=== PATIENT | male | born 1950 | race Caucasian/White ===

== ENCOUNTER 2021-01-08 07:56 | Day surgery (SDC) | payer MEDICARE, SELFPAY ==
[2021-01-02 16:40] VITALS: BMI 38.7
--- NOTE | 2021-01-04 07:51 | MHC.SHP ---
Pre-Procedural Eval Section A The patient is an INPATIENT: No The History & Physical has been completed within 30 days and I have reviewed it.: Yes Section B Chief Complaint: cataract Allergies: Allergies Allergy/AdvReac Type Severity Reaction Status Date / Time Sulfa (Sulfonamide Allergy Severe Unknown Verified 01/02/21 16:34 Antibiotics) Plan Diagnosis/Plan: Unchanged I have reviewed the history and physical and performed a pertinent physical examination on my patient. No changes have occurred unless specified.
[2021-01-08 08:36] VITALS: BP 156/70; PULSE 70; RESP 16; TEMP 36.6; O2SAT 94
[2021-01-08] MEDS: Tetracaine HCl/PF 0.5% Oph Sol 4 ML DROPS 1 DROP EYE-LEFT (08:45)
[2021-01-08] MEDS: Tropicamide 1 % Ophth Sol 3 ML BTL 1 DROP EYE-LEFT ×3 (08:48→08:56)
[2021-01-08] MEDS: Lactated Ringers 500 ML 50 ML IV (08:48)
--- NOTE | 2021-01-08 08:48 | HO.ANESPROP2 ---
[facility] Past Medical History Medical History Alcoholic cirrhosis Anemia Arthritis Benign prostatic hyperplasia Cataract COVID-19 vaccine series completed Elevated cholesterol GERD (gastroesophageal reflux disease) History of atrial fibrillation History of diverticulosis History of GI bleed HTN (hypertension) Numbness of foot Presence of Watchman left atrial appendage closure device Ventral hernia Surgical History Surgical History History of bowel resection History of esophagogastroduodenoscopy (EGD) History of surgical removal of pilonidal cyst Hx of colonoscopy Hx of tonsillectomy Social History Social History (Updated 01/04/21 @ 13:24 by Lucretia Rebolledo) Patient Tobacco Use Status: Former Tobacco user Quit Date: 2004 Use of substances other than those prescribed or required for medical reasons: No Are you DNR?: No Advance Directives: No Advance Directives Information Provided: No Advance Directives on File: No Meds Allergies Allergy/AdvReac Type Severity Reaction Status Date / Time Sulfa (Sulfonamide Allergy Severe Unknown Verified 01/08/21 08:19 Antibiotics) Active Medications: Current Medications Generic Name Dose Route Start Last Admin Trade Name Freq PRN Reason Stop Dose Admin Lactated Ringer's 500 mls @ 50 mls/hr 01/08/21 09:00 Lr IV 01/08/21 18:59 .Q10H YVETTE Povidone Iodine 1 appl 01/08/21 08:18 Povidone Iodine 5 % Ophth Soln 30 Ml Bottle EYE-LEFT PREOP PRN Pre-Op Surgical Implant Prophy Home Medications Medication Instructions Recorded Confirmed Last Taken Type acetaminophen [Tylenol Ex Str 1,000 mg PO QID PRN 01/02/21 01/02/21 Unknown History Arthritis Pain] ascorbic acid (vitamin C) [Vitamin 500 mg PO DAILY 01/02/21 01/02/21 Unknown History C] aspirin [Aspir-81] 81 mg PO DAILY 01/02/21 01/02/21 01/07/21 06:45 History atenolol 25 mg PO DAILY 01/02/21 01/02/21 01/08/21 06:45 History atorvastatin 10 mg PO BEDTIME 01/02/21 01/02/21 Unknown History dofetilide [Tikosyn] 500 mcg PO Q12H 01/02/21 01/02/21 01/08/21 06:45 History ferrous sulfate 325 mg PO DAILY 01/02/21 01/02/21 Unknown History folic acid 1 mg PO DAILY 01/02/21 01/02/21 Unknown History glucosamine HCl 3,000 mg PO DAILY 01/02/21 01/02/21 Unknown History lisinopril 20 mg PO DAILY 01/02/21 01/02/21 Unknown History owcquedredwv-drlvjxaj-icehjj 1 tab PO DAILY 01/02/21 01/02/21 Unknown History [Multivitamin 50 Plus] pantoprazole 40 mg PO DAILY@1700 01/02/21 01/02/21 Unknown History tamsulosin 0.4 mg PO BEDTIME 01/02/21 01/02/21 Unknown History thiamine HCl (vitamin B1) 100 mg PO DAILY 01/02/21 01/02/21 Unknown History Exam Exam Date and Time: January 08, 2021 0848 Height,Weight and Vital Signs: Height 5 ft 6 in Weight 108.862 kg Last Vital Signs Temp 97.8 F 01/08/21 08:36 Pulse 70 01/08/21 08:36 Resp 16 01/08/21 08:36 BP 156/70 H 01/08/21 08:36 Pulse Ox 94 01/08/21 08:36 Airway Mallampati Class: II TM Dist: >3cm Neck ROM: Full Heart: rrr Lungs: cta Assessment and Plan Assessment Anesthesia Assessment: Anesthesia Plan Discussed and Chart Reviewed Final Anesthetic Review NPO: Yes ASA Class: III Final Preanesthetic Review: No Changes in Pt Med Stat and Consent Obtained/Reviewed Patient Risk: Intermediate Procedure Risk: Intermediate Anesthetic Plan Anesthetic Plan: MAC: Disposition: Standard PACU
[2021-01-08] MEDS: Phenylephrine HCL 2.5% Oph SoL 2 ML BOTTLE 1 DROP EYE-LEFT ×3 (08:51→08:58)
--- NOTE | 2021-01-08 10:11 | HO.PNOPHT ---
Ophthalmology Procedure Procedure Date of Service: 01/08/21 Ophthalmology Viscoelastic: Healon Duet Dual Pack Pro Ophthalmology Lenses: TECEDNA [id number] (22) Procedure Notes: PREOPERATIVE DIAGNOSIS: Decreased visual acuity left eye secondary to cataract POSTOPERATIVE DIAGNOSIS: Same PROCEDURE: Left cataract extraction with intraocular lens insertion SURGEON: Modesto Root M.D. ANESTHESIA: Topical/MAC ESTIMATED BLOOD LOSS: None COMPLICATIONS: None After obtaining informed consent, the patient was brought to the operation room suite and placed in the supine position. After adequate sedation per anesthesia, topical drops of Tetracaine were given to the left eye. The eye was then prepped and draped in the usual sterile fashion. The operating room microscope was then positioned over the operative eye and a lid speculum placed. A paracentesis was created. Viscoelastic was then instilled into the anterior chamber. A three plane incision was then created temporally, utilizing a 2.85 mm keratome. Capsulotomy forceps were then utilized to create a circular tear capsulotomy. Hydrodissection and hydrodelineation were carried out until adequate mobilization of the nucleus occurred. Phacoemulsification was then utilized to remove the dense central nucleus followed by removal of the cortical material utilizing the automated aspiration irrigation unit. Viscoat elastic was instilled into the posterior capsular bag followed by placement of a posterior chamber intraocular lens without difficulty. The residual Viscoat elastic was then removed utilizing the automated IA machine. The wound was check and found to be watertight. The patient tolerated the procedure well and the lid speculum was removed. Intracameral injection of Vigamox 0.1 mL followed by a subtenon injection of Kenalog-40 0.2 mL were administered. The patient will be seen in the a.m.
[2021-01-08 10:39] VITALS: BP 151/61; PULSE 57; RESP 16; TEMP 36.5; O2SAT 95
== END 2021-01-08 10:43 | disposition home or self-care (01) ==
PROVIDERS: PCP Internal Medicine; Visit Provider Ophthalmology
PROC: (CPT 66985; principal; 2021-01-08 09:50)
DX: H25.12 Age-related nuclear cataract, left eye (principal); H35.032 Hypertensive retinopathy, left eye; I10 Essential (primary) hypertension; I48.91 Unspecified atrial fibrillation; Z95.818 Presence of other cardiac implants and grafts; Z87.891 Personal history of nicotine dependence; Z79.899 Other long term (current) drug therapy
CPT/HCPCS: 66984; J2250; J3010; J3300; V2632

== ENCOUNTER 2021-09-24 09:07 | Day surgery (SDC) | payer MEDICARE, SELFPAY ==
[2021-09-17 14:51] VITALS: BMI 35.9
--- NOTE | 2021-09-20 12:55 | MHC.SHP ---
Pre-Procedural Eval Section A Date of Service: 09/20/21 The patient is an INPATIENT: No Changes since office visit: No Cold of Flu in the past 2 weeks, No New Medical Problems, No Changes in Medication and No Patient answered all questions The History & Physical has been completed within 30 days and I have reviewed it.: Yes Section B Chief Complaint: cataract Allergies: Allergies Allergy/AdvReac Type Severity Reaction Status Date / Time Sulfa (Sulfonamide Allergy Severe Unknown - Verified 09/17/21 14:50 Antibiotics) Childhood Rxn Plan Diagnosis/Plan: Unchanged I have reviewed the history and physical and performed a pertinent physical examination on my patient. No changes have occurred unless specified.
--- NOTE | 2021-09-21 09:19 | P.CONAN_ITS ---
Documented by User: Svetlana Alonzo NP 09/21/21 09:20 HPI - Anesthesia Eval Consult details Narrative: 71yo M for Right Cataract Multifocal with IOL Insertion PCP cleared Left eye 01/08/21 with TIVA: Fent 50, Midaz 1 PMFSH Past Medical History Medical History Alcoholic cirrhosis Anemia Arthritis Benign prostatic hyperplasia Cataract COVID-19 vaccine series completed Elevated cholesterol GERD (gastroesophageal reflux disease) History of atrial fibrillation History of diverticulosis History of GI bleed HTN (hypertension) Numbness of foot Presence of Watchman left atrial appendage closure device Ventral hernia Surgical History Surgical History History of bowel resection History of esophagogastroduodenoscopy (EGD) History of surgical removal of pilonidal cyst Hx of cataract extraction Hx of colonoscopy Hx of tonsillectomy Social History Social History (Updated 01/04/21 @ 13:24 by Lucretia Rebolledo RN) Are you a primary customer care assistant to a significant other at home: No Do you presently have visiting nurse or other home services: No Patient Tobacco Use Status: Former Tobacco user Quit Date: 2004 Tobacco use type: Cigarette Second Hand Smoke Exposure: No Use of substances other than those prescribed or required for medical reasons: No Have you been hit, kicked, punched, or otherwise hurt by someone within the past year? If so, by whom?: No Are you DNR?: No Advance Directives: No Advance Directives Information Provided: No Advance Directives on File: No Recently lost weight without trying: No Eating poorly because of decreased appetite: No Nutrition Risks: No Nutritional Risk Meds Allergies Allergy/AdvReac Type Severity Reaction Status Date / Time Sulfa (Sulfonamide Allergy Severe Unknown - Verified 09/17/21 14:50 Antibiotics) Childhood Rxn Home Medications Medication Instructions Recorded Confirmed Last Taken Type acetaminophen 500 mg tablet 1,000 mg PO QID PRN 01/02/21 01/02/21 Unknown History ascorbic acid (vitamin C) 500 mg 500 mg PO DAILY 01/02/21 09/17/21 Unknown History tablet (Vitamin C) aspirin 81 mg tablet,delayed 81 mg PO DAILY 01/02/21 09/17/21 01/07/21 06:45 History release atenolol 25 mg tablet 25 mg PO DAILY 01/02/21 09/24/21 09/24/21 History atorvastatin 10 mg tablet 10 mg PO BEDTIME 01/02/21 09/17/21 Unknown History dofetilide 500 mcg capsule 500 mcg PO Q12H 01/02/21 09/24/21 09/24/21 History (Tikosyn) ferrous sulfate 325 mg (65 mg 325 mg PO DAILY 01/02/21 09/17/21 Unknown History iron) tablet folic acid 1 mg tablet 1 mg PO DAILY 01/02/21 09/17/21 Unknown History glucosamine HCl 1,500 mg tablet 3,000 mg PO DAILY 01/02/21 09/17/21 Unknown History lisinopril 20 mg tablet 20 mg PO DAILY 01/02/21 09/17/21 Unknown History elekicdhcoxo-czuvydrl-bdkbbb 1 tab PO DAILY 01/02/21 09/17/21 Unknown History tablet (Multivitamin 50 Plus) pantoprazole 40 mg tablet,delayed 40 mg PO DAILY@1700 01/02/21 09/17/21 Unknown History release tamsulosin 0.4 mg capsule 0.4 mg PO BEDTIME 01/02/21 09/17/21 Unknown History thiamine HCl (vitamin B1) 100 mg 100 mg PO DAILY 01/02/21 09/17/21 Unknown History tablet Exam Exam Date and Time: September 21, [id number] Height,Weight and Vital Signs: Height 5 ft 6 in Weight 101.151 kg Assessment and Plan Assessment Anesthesia Assessment: Chart Reviewed Documented by User: Alberto Bunch MD 09/24/21 10:35 [facility] Past Medical History Medical History Alcoholic cirrhosis Anemia Arthritis Benign prostatic hyperplasia Cataract COVID-19 vaccine series completed Elevated cholesterol GERD (gastroesophageal reflux disease) History of atrial fibrillation History of diverticulosis History of GI bleed HTN (hypertension) Numbness of foot Presence of Watchman left atrial appendage closure device Ventral hernia Family History Family history of problems with anesthesia: No Surgical History Surgical History History of bowel resection History of esophagogastroduodenoscopy (EGD) History of surgical removal of pilonidal cyst Hx of cataract extraction Hx of colonoscopy Hx of tonsillectomy History of Problems with Anesthesia: No Social History Social History (Updated 01/04/21 @ 13:24 by Lucretia Rebolledo RN) Are you a primary customer care assistant to a significant other at home: No Do you presently have visiting nurse or other home services: No Patient Tobacco Use Status: Former Tobacco user Quit Date: 2004 Tobacco use type: Cigarette Second Hand Smoke Exposure: No Use of substances other than those prescribed or required for medical reasons: No Have you been hit, kicked, punched, or otherwise hurt by someone within the past year? If so, by whom?: No Are you DNR?: No Advance Directives: No Advance Directives Information Provided: No Advance Directives on File: No Recently lost weight without trying: No Eating poorly because of decreased appetite: No Nutrition Risks: No Nutritional Risk Meds Allergies Allergy/AdvReac Type Severity Reaction Status Date / Time Sulfa (Sulfonamide Allergy Severe Unknown - Verified 09/17/21 14:50 Antibiotics) Childhood Rxn Home Medications Medication Instructions Recorded Confirmed Last Taken Type acetaminophen 500 mg tablet 1,000 mg PO QID PRN 01/02/21 01/02/21 Unknown History ascorbic acid (vitamin C) 500 mg 500 mg PO DAILY 01/02/21 09/17/21 Unknown History tablet (Vitamin C) aspirin 81 mg tablet,delayed 81 mg PO DAILY 01/02/21 09/17/21 01/07/21 06:45 History release atenolol 25 mg tablet 25 mg PO DAILY 01/02/21 09/24/21 09/24/21 History atorvastatin 10 mg tablet 10 mg PO BEDTIME 01/02/21 09/17/21 Unknown History dofetilide 500 mcg capsule 500 mcg PO Q12H 01/02/21 09/24/21 09/24/21 History (Tikosyn) ferrous sulfate 325 mg (65 mg 325 mg PO DAILY 01/02/21 09/17/21 Unknown History iron) tablet folic acid 1 mg tablet 1 mg PO DAILY 01/02/21 09/17/21 Unknown History glucosamine HCl 1,500 mg tablet 3,000 mg PO DAILY 01/02/21 09/17/21 Unknown History lisinopril 20 mg tablet 20 mg PO DAILY 01/02/21 09/17/21 Unknown History fznengggblsm-amewvfyw-fpzmcm 1 tab PO DAILY 01/02/21 09/17/21 Unknown History tablet (Multivitamin 50 Plus) pantoprazole 40 mg tablet,delayed 40 mg PO DAILY@1700 01/02/21 09/17/21 Unknown History release tamsulosin 0.4 mg capsule 0.4 mg PO BEDTIME 01/02/21 09/17/21 Unknown History thiamine HCl (vitamin B1) 100 mg 100 mg PO DAILY 01/02/21 09/17/21 Unknown History tablet Exam Airway Mallampati Class: II TM Dist: >3cm Neck ROM: Full Loose/Missing/Broken Teeth: No Heart: rrr+[id number] Lungs: cta b/l Assessment and Plan Assessment Anesthesia Assessment: Anesthesia Plan Discussed Final Anesthetic Review Family History of Problems with Anesthesia: No History of Problems with Anesthesia: No NPO: Yes ASA Class: III Final Preanesthetic Review: No Changes in Pt Med Stat, Meds/Allgs Chart Reviewed, Consent Obtained/Reviewed and Anes Risks/Benef Reviewed Patient Risk: Intermediate Procedure Risk: Low Assessment/Block/Sedation in SS: Assess/Block/Sedation-SS Anesthetic Plan Anesthetic Plan: MAC: and Agree w/ Assess. and Plan Disposition: Standard PACU
[2021-09-24 10:27] VITALS: BP 182/58; PULSE 50; RESP 18; TEMP 36.6; O2SAT 96
[2021-09-24] MEDS: Tropicamide 1 % Ophth Sol 3 ML BTL 1 DROP EYE-RIGHT ×3 (10:32→10:39)
[2021-09-24] MEDS: Tetracaine HCl/PF 0.5% Oph Sol 4 ML DROPS 1 DROP EYE-RIGHT (10:32)
[2021-09-24] MEDS: Phenylephrine HCL 2.5% Oph SoL 2 ML BOTTLE 1 DROP EYE-RIGHT ×3 (10:33→10:39)
[2021-09-24] MEDS: Lactated Ringers 500 ML 50 ML IV (10:40)
--- NOTE | 2021-09-24 11:31 | HO.PNOPHT ---
Ophthalmology Procedure Procedure Date of Service: 09/24/21 Ophthalmology Viscoelastic: Healalessandra Duet Dual Pack Pro Ophthalmology Lenses: TECNIS [id number] (23.5) Procedure Notes: PREOPERATIVE DIAGNOSIS: Decreased visual acuity right eye secondary to cataract POSTOPERATIVE DIAGNOSIS: Same PROCEDURE: Right cataract extraction with intraocular lens insertion SURGEON: Modesto Root M.D. ANESTHESIA: Topical/MAC ESTIMATED BLOOD LOSS: None COMPLICATIONS: None After obtaining informed consent, the patient was brought to the operating room suite and placed in the supine position. After adequate sedation per anesthesia, topical drops of Tetracaine were given to the right eye. The eye was then prepped and draped in the usual sterile fashion. The operating room microscope was then positioned over the operative eye and a lid speculum placed. A paracentesis was created. Viscoelastic was then instilled into the anterior chamber. A three plane incision was then created temporally, utilizing a 2.85 mm keratome. Capsulotomy forceps were then utilized to create a circular tear capsulotomy. Hydrodissection and hydrodelineation were carried out until adequate mobilization of the nucleus occurred. Phacoemulsification was then utilized to remove the dense central nucleus followed by removal of the cortical material utilizing the automated aspiration irrigation unit. Viscoelastic was instilled into the posterior capsular bag followed by placement of a posterior chamber intraocular lens without difficulty. The residual Viscoelastic was then removed utilizing the automated IA machine. The wound was checked and found to be watertight. The patient tolerated the procedure well and the lid speculum was removed. Intracameral injection of Vigamox 0.1 mL followed by a subtenon injection of Kenalog-40 0.2 mL were administered. The patient will be seen in the a.m.
[2021-09-24 11:54] VITALS: BP 145/62; PULSE 52; RESP 16; TEMP 36.2; O2SAT 98
== END 2021-09-24 12:06 | disposition home or self-care (01) ==
PROVIDERS: PCP Internal Medicine; Visit Provider Ophthalmology
PROC: (CPT 66985; principal; 2021-09-24 11:50)
DX: H25.11 Age-related nuclear cataract, right eye (principal); H54.7 Unspecified visual loss; H35.033 Hypertensive retinopathy, bilateral; Z96.1 Presence of intraocular lens; I10 Essential (primary) hypertension; E78.00 Pure hypercholesterolemia, unspecified; I48.91 Unspecified atrial fibrillation; Z79.82 Long term (current) use of aspirin; Z79.899 Other long term (current) drug therapy; Z88.2 Allergy status to sulfonamides; Z87.891 Personal history of nicotine dependence
CPT/HCPCS: 66984; J2250; J3300; V2632